=== PATIENT | female | born 1995 | race Caucasian/White ===

== ENCOUNTER 2018-08-17 20:41 | Emergency (ER) | payer OTHER ==
[~2018-08-17] VITALS: Ht 160 cm; Wt 56.7 kg
[2018-08-17] MEDS ORDERED: HYDROXYCHLOROQ100 GM (20:49)
[2018-08-18] MEDS ORDERED: CLONAZEPAM0.25 MG PO (00:33)
== END 2018-08-18 00:57 | disposition home or self-care (01) ==
LOC: ER 20:41
DX: R06.02 Shortness of breath (principal); T44.3X5A Adverse effect of other parasympatholytics [anticholinergics and antimuscarinics] and spasmolytics, initial encounter